=== PATIENT | male | born 1950 | race Caucasian/White ===

== ENCOUNTER 2017-10-11 09:54 | Inpatient (IN) | payer OTHER ==
[~2017-10-11] VITALS: Ht 167.6 cm; Wt 77.5 kg
[2017-10-11] VITALS (17 sets, daily range): BP systolic 98–147; BP diastolic 61–98; Ht 167.6 cm; Wt 77.5 kg
--- NOTE | ~2017-10-11 | EC ---
PATIENT:JANA SAN DATE OF SERVICE: 10/11/17 SEX: M MEDICAL RECORD: [id number] DATE OF : 52 LOCATION:[place] [address] AGE OF PATIENT: 67 ADMISSION DATE: 10/11/17 REFERRING PHYSICIAN: INTERPRETING PHYSICIAN: RAMONITA YOUNG MD ECHOCARDIOGRAM REPORT ECHO CHARGES 4 ECHO COMPLETE CLINICAL DIAGNOSIS: INFERIOR LA ECHOCARDIOGRAPHIC MEASUREMENTS (adult normal given) AC root (d.<3.7cm) 2.8 cm LV Septum d (<1.2 cm> 1.2 cm Valve Excursion 1.7 cm LV Septum (systole) 1.7 cm Left Atria (s.<4.0cm> 2.8 cm LVPW d(<1.2cm) 1.1 cm RV (d.<2.3cm) 2.8 cm LVPW (sytole) 1.5 cm LV diastole(<5.6CM) 5.2 cm MV E-F(>70mm/sec) cm LV systole 3.4 cm LVOT Diameter 1.9 cm MV exc.(>10mm) cm Est.ejection fraction (50-75%) % Pericardial Effusion N DOPPLER: LVIT cm/sec A 101 cm/sec E 55.0 cm/sec LA cm/sec RVSP 26.0 mmHg LVOT 78.0 cm/sec AOP1/2T m/s Asc. Ao 149 cm/sec RVOT 44.0 cm/sec RA cm/sec PA 87.0 cm/sec AV Gradient Peak 8.9 mmHg AV Mean 4.5 mmHg AV Area 1.4 cm MV Gradient Peak 5.7 mmHg MV Mean 1.6 mmHg MV Area cm COMMENTS: Package Dyeing Machine Operator: Aline JOHNSON Ovens Supervisor: 2 Dr. Santos TAPE# PACS DATE OF SERVICE: 10/12/2017 PROCEDURE: Echocardiogram. FINDINGS: 1. Left ventricular chamber size is within normal limits. Left ventricular systolic function is normal. Overall ejection fraction estimated at 50%. 2. Left atrium, right atrium, and right ventricular chamber sizes are within normal limits. 3. Valvular structures have normal structure and motion. ECHOCARDIOGRAM REPORT [id number] JANA SAN 4. Doppler interrogation reveals only mild mitral regurgitation. No other valvular insufficiency or stenosis. 5. No evidence of pericardial effusion or left ventricular thrombus. Pulmonary systolic pressure is normal estimated 12 mmHg. TRANSINT:[id number] Voice Confirmation ID: [id number] DOCUMENT ID: [id number] RAMONITA YOUNG MD at 1324 CC: [id number] DICTATION DATE: 10/12/17 1254 AVIONICS MECHANIC: 10/12/17 1339 DIS IN 10/12/17 [facility] [address] [place] [id number]
--- NOTE | ~2017-10-11 | HEMODYNAMI ---
PATIENT:JANA SAN MEDICAL RECORD: [id number] : 52 [id number] ADMISSION DATE: 10/11/17 Generatedon:10/11/201710:56 Patient name: JANA SAN Patient #: [id number] SSN: DO B: 1950 Date of study: 10/11/2017 Page: Of Hemodynamic Procedure Report Patient Data Patient Demographics Procedure consent was obtained First Name: JANA Gender: Male Last Name: JASWINDER : 1950 Middle Initial: W Age: 67 year(s) Patient #: [id number] Race: Unknown Additional ID: [id number] Contact details [address]: [address] [place] [address] State: [place] City: [place] Zip code: [address] Admission Admission Data Admission Date: 10/11/2017 Admission Time: 9:54 Procedure Procedure Types Cath Procedure Diagnostic Procedure LHC LHC w/Coronaries PCI Procedure AMI/SVG/ARCH 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 PTCA or Stent AMI-BMS/JENNIFER Initial Miscellaneous Procedures Moderate Sedation up to 30 minutes Procedure Description Procedure Date Procedure Date: 10/11/2017 Procedure Start Time: 10:27 Procedure End Time: 10:56 Procedure Staff Name Function Benji Hernandez RT Monitor Shyla Salazar RT Scrub Saritha Medina RN Nurse Chante Lau RN Nurse Sarath Santos MD Performing Physician Procedure Data Cath Procedure Fluoroscopy Diagnostic fluoroscopy Total fluoroscopy Time: 7.2 time: 7.2 min min Diagnostic fluoroscopy Total fluoroscopy dose: 809 dose: 809 mGy mGy Contrast Material Contrast Material Type Amount (ml) Isovue 300 133 Entry Location Entry Primary Successful Side Size Upsize Upsize Entry Closure Succes sful Closure Location (Fr) 1 (Fr) 2 (Fr) Remarks Device Remarks Femoral Right 6 Fr Exoseal artery Short Estimated blood loss: 10 ml Diagnostic catheters Device Type Used For End Catheter Placement MULTIPACK JL 4.0 5Fr Procedure catheter MULTIPACK 3DRC 5Fr Procedure catheter DIAGNOSTIC AR 2 MOD 5 Fr Procedure catheter ([id number]) MULTIPACK Pigtail 5 Fr Procedure catheter Procedure Complications No complications Procedure Medications Medication Administration Route Dosage 0.9% NaCl I.V. 100 ml/hr Oxygen NC 2 l/min Lidocaine 2% added to field 20 Heparin Flush Bag added to field 2 bags (1000units/500ml NS) Versed I.V. 1 mg Fentanyl I.V. 50 mcg Versed I.V. 1 mg Fentanyl I.V. 50 mcg Versed I.V. 1 mg Heparin Bolus I.V. 7000 units Versed I.V. 1 mg Hemodynamics Rest Heart Rate: 73 (bpm) Pressure Samples Time Site Value (mmHg) Purpose Heart Use Rate(bpm) 10:29 AO 100/62(79) Snapshot 73 10:36 LV 118/-9,12 Snapshot 81 10:37 AO 122/61(87) Pullback 82 10:37 LV 138/-6,10 Pullback 82 Gradients Valve Time Site 1 Site 2 Mean SEP/DFP Peak To Heart Use (mmHg) (sec/min) Peak Rate (mmHg) (bpm) Aortic 10:37 LV AO 7 7 16 82 138/-6,10 122/61(87) Calculations Valve P-P Mean Valve Index Valve Source Name Gradient Area Flow (cm2) Aortic 16 7 16 7 Snapshots Pre Cath Intra NCS Post Cath Vital Signs Time Heart Resp SPO2 etCO2 NIBP (mmHg) Rhythm Pain Sedation Rate (ipm) (%) (mmHg) Status Level (bpm) 10:17:00 82 17 99 30.5 142/63(125) NSR 0 (11) 10(A) , No pain 10:21:41 72 14 99 32 119/62(111) NSR 0 (11) 10(A) , No pain 10:26:17 71 18 96 31.2 118/71(93) NSR 0 (11) 10(A) , No pain 10:30:52 77 20 98 34.2 119/74(96) NSR 0 (11) 9(A) , No pain 10:35:28 74 19 98 37.2 119/68(94) NSR 0 (11) 10(A) , No pain 10:40:03 81 21 98 32 117/76(98) NSR 0 (11) 9(A) , No pain 10:44:37 84 22 98 29 118/77(94) NSR 0 (11) 9(A) , No pain 10:49:12 80 24 98 32.8 128/73(102) NSR 0 (11) 10(A) , No pain 10:53:48 82 20 98 30.5 125/79(97) NSR 0 (11) 10(A) , No pain Medications Time Medication Route Dose Verified Delivered Reason Not es Effectiveness by by 10:18:09 0.9% NaCl I.V. 100ml/hr Eron Chante used for Mario Lau RN procedure 10:18:23 Oxygen NC 2 l/min Eron Chante Per physician Mario Lau RN 10:18:36 Lidocaine 2% added 20ml Eron Eron for local to vial Mario Martin MD anesthetic field 10:18:44 Heparin Flush added 2 bags Eron Eron used for Bag to Mario Martin MD procedure (1000units/500ml field NS) 10:23:29 Versed I.V. 1 mg Sarath Chante for sedation Tom Lau RN 10:23:35 Fentanyl I.V. 50 mcg Sarath Chante for sedation Tom Lau RN 10:26:56 Versed I.V. 1 mg Sarath Chante for sedation Tom Lau RN 10:27:02 Fentanyl I.V. 50 mcg Sarath Chante for sedation Tom Lau RN 10:34:00 Versed I.V. 1 mg Sarath Chante for sedation Tom Lau RN 10:40:06 Heparin Bolus I.V. 7,000 Sarath Chante for [place] ified units Tom Lau RN anticoagulation with dr santos 10:46:23 Versed I.V. 1 mg Sarath Chante for sedation Tom Lau RN Procedure Log Time Note 10:00:44 Benji Hernandez RT(R) sent for patient. Start room use. 10:15:51 Time tracking: Regular hours 10:15:54 Plan of Care:Hemodynamics will remain stable., Cardiac rhythm will remain stable., Comfort level will be maintained., Respiratory function will remain adequate., Patient/ family verbilizes understanding of procedure., Procedure tolerated without complication., Recovers from procedure without complications.. 10:15:57 Patient arrives emergently. 10:16:01 Patient received from ED to CCL 1 Alert and oriented. Tansferred to table in Supine position. 10:16:03 Warm blankets applied, and guero hugger turned on for patient comfort. 10:16:03 Correct patient and procedure confirmed by team. 10:16:04 Signed procedure consent form obtained from patient. 10:16:05 ECG and BP/O2 sat monitors applied to patient. 10:16:05 Vital chart was started 10:16:06 Baseline sample Acquired. 10:16:10 Rhythm: sinus rhythm 10:16:12 Full Disclosure recording started 10:16:16 H&P Date Dictated: 10/11/2017 Emergent; H&P N/A. 10:16:18 Pre-procedure instructions explained to patient. 10:16:18 Pre-op teaching completed and patient verbalized understanding. 10:16:29 Family unavailable. 10:16:31 Patient NPO since Midnight. 10:16:34 Is the patient allergic to Iodine/contrast media? No. 10:16:36 Is patient on blood thinner?Yes 10:16:46 ACC The patient was administered the following blood thiners within the last 24 hours: ACCPlavix 10:16:52 Patient diabetic? No. 10:16:55 Previous problem with sedation/anesthesia? No ? 10:16:56 Snore? Yes 10:16:56 Sleep apnea? No 10:16:57 Deviated septum? No 10:16:58 Opens mouth fully? Yes 10:16:59 Sticks out tongue? Yes 10:17:01 Airway obstruction? No ? 10:17:04 Dentures? No ? 10:17:07 Pre procedure: right dorsailis pedis pulse 1+ Palpable, but thready & weak; easily obliterated 10:17:09 Patient pain scale 0/10 ?. 10:17:24 IV patent on arrival in left hand with 0.9% NaCl at O. 10:17:25 Lab results completed and on chart. 10:17:29 Right groin area was prepped with chlora-prep and draped in sterile fashion 10:17:30 Alarms reviewed by R. N. 10:17:31 Sharps counted by scrub and verified by R.N. 10:17:41 --------ALL STOP TIME OUT------ 10:17:41 Final Timeout: patient, procedure, and site verified with staff and physician. All members of the team are in agreement. 10:17:43 Right groin site verified by team. 10:17:46 Physical assessment completed. ASA score P 2 - A patient with mild systemic disease as per Sarath Santos MD. 10:17:49 Sedation plan: IV Moderate Sedation Medication:Versed, Fentanyl 10:18:09 0.9% NaCl 100ml/hr I.V. was administered by Chante Lau RN; used for procedure; 10:18:23 Oxygen 2 l/min NC was administered by Chante Lau RN; Per physician; 10:18:36 Lidocaine 2% 20ml vial added to field was administered by Eron Martin MD; for local anesthetic; 10:18:44 Heparin Flush Bag (1000units/500ml NS) 2 bags added to field was administered by Eron Martin MD; used for procedure; 10:22:22 Use device set Femoral Dx 10:23:29 Versed 1 mg I.V. was administered by Chante Lau RN; for sedation; 10:23:35 Fentanyl 50 mcg I.V. was administered by Chante Lau RN; for sedation; 10:23:47 Tegaderm 4 x 4 (1626W) opened to sterile field. 10:23:48 ACIST Manifold (81477) opened to sterile field. 10:23:49 ACIST Hand Control (48102) opened to sterile field. 10:23:50 ACIST Syringe (10325) opened to sterile field. 10:23:51 Bag Decanter () opened to sterile field. 10:23:52 Medline Cath Pack ([id number]) opened to sterile field. 10:23:57 DIAGNOSTIC WIRE .035 260cm J wire (845728) opened to sterile field. 10:24:03 DIAGNOSTIC Multipack 5Fr catheter set (NP8473) opened to sterile field. 10:24:04 PERCUTANEOUS ENTRY 19GA needle opened to sterile field. 10:24:05 SHEATH 6FR [place] (JOH534) opened to sterile field. 10:24:06 INFLATOR Merit BasixCompak (CZ5092) opened to sterile field. 10:24:06 BMW 300cm Pella 2 J wire (2263320D) opened to sterile field. 10:24:07 TUBING High Pressure Extension Tubing (Tom) (AF5926P) opened to sterile field. 10:24:07 IV Extension Set opened to sterile field. 10:26:56 Versed 1 mg I.V. was administered by Chante Lau RN; for sedation; 10:27:02 Fentanyl 50 mcg I.V. was administered by Chante Lau RN; for sedation; 10:27:41 Procedure started. 10:27:46 Local anesthetic to right femoral artery with Lidocaine 2% by Sarath Santos MD.INITIAL ACCESS ONLY 10:28:29 A 6 Fr Short sheath was inserted into the Right Femoral artery 10:29:06 A MULTIPACK JL 4.0 5Fr catheter was advanced over the wire and used for Procedure. 10:29:34 LCA angiography performed. 10:30:01 Baseline sample Acquired. 10:31:24 Catheter exchanged over wire. 10:31:36 A MULTIPACK 3DRC 5Fr catheter was advanced over the wire and used for Procedure. 10:33:39 Catheter removed. unable to cannulate vessel. 10:33:52 A DIAGNOSTIC AR 2 MOD 5 Fr catheter (594442U) was advanced over the wire and used for Procedure. 10:34:00 Versed 1 mg I.V. was administered by Chante Lau RN; for sedation; 10:35:01 RCA angiography performed. 10:35:32 Catheter exchanged over wire. 10:35:38 A MULTIPACK Pigtail 5 Fr catheter was advanced over the wire and used for Procedure. 10:35:49 GUIDE 6FR AR 2.0 catheter ([id number]) opened to sterile field. 10:36:57 LV angiography performed. 10:36:58 LV gram done using REN 10:37:03 EF : 50 % 10:37:16 LV hemodynamics recorded. 10:37:19 Injector settings: Ml/sec: 10, Volume: 20, 10:37:21 Catheter exchanged over wire. 10:37:30 6 Fr AR 2 guide catheter was inserted over the wire 10:38:36 Study PCI Site: [place] mRCA has 95% stenosis. 10:39:15 ACC Pre-intervention MONSE Flow is 3. 10:40:06 Heparin Bolus 7,000 units I.V. was administered by Chante Lau RN; for anticoagulation; verified with dr santos 10:41:11 BMW wire advanced. 10:42:31 Wire advanced across lesion. 10:42:51 Inflation number: 1 A MAVERICK 2.5 X 20 balloon ( [id number]) was prepped and advanced across the Mid RCA, then inflated to 12 JOSE for 0:10 (min:sec). 10:44:54 Balloon removed over the wire. 10:46:23 Versed 1 mg I.V. was administered by Chante Lau RN; for sedation; 10:48:54 Inflation Number: 2 A INTEGRITY OTW 3.0 X 26 stent ([id number]) was prepped and advanced across the Mid RCA. The stent was deployed at 14 JOSE for 0:10 (min:sec). 10:51:02 Stent catheter was removed intact over wire. 10:51:04 Wire removed. 10:51:04 Guide catheter removed. 10:51:14 EXOSEAL 6Fr (EX600) opened to sterile field. 10:51:28 Sheath removed intact; hemostasis achieved with Exoseal to the Right Femoral artery. 10:51:35 Procedure ended.(Physican Out) 10:53:14 Fluoroscopy time 07.20 minutes. 10:53:18 Fluoroscopy dose: 809 mGy 10:53:18 Flurop Dose total: 809 10:53:25 Contrast amount:Isovue 300 133ml. 10:53:27 Sharps counted by scrub and verified by R.N. 10:53:29 Insertion/operative site no bleeding no hematoma. 10:53:33 Post-op/insertion site Right Femoral artery dressed using a 4 x 4 and Tegaderm. 10:53:38 Post Procedure Pulses reassessed and unchanged 10:53:42 Post-procedure physical assessment completed. ASA score P 2 - A patient with mild systemic disease as per Sarath Santos MD. 10:53:45 Post procedure rhythm: unchanged. 10:53:49 Estimated blood loss: 10 ml 10:53:51 Post procedure instruction explained to patient.Patient verbalizes understanding. 10:53:52 Patient needs reinforcement of post procedure teaching. 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 10:54:06 Procedure Complication : No complications 10:56:22 Vital chart was stopped 10:56:22 See physician's report for complete and final results. 10:56:27 Report given to CVICU. 10:56:31 Patient transfered to CVICU with Bed. 10:56:33 Procedure ended. 10:56:33 Full Disclosure recording stopped 10:56:40 End room use (Document Last) Intervention Summary Intervention Notes Time ActionType Lesion and Equipment Action# Pressure Duration Attributes Used 10:42:51 Inflate Mid RCA MAVERICK 1 12 00:10 balloon 2.5 X 20 balloon ( [id number]) 10:48:54 Place stent Mid RCA INTEGRITY 2 14 00:10 OTW 3.0 X 26 stent ([id number]) Device Usage Item Name Manufacture Quantity Catalog Number Hospital Part Current Min imal Lot# / Charge Number Stock Stock Serial# Code Tegaderm 4 x 3M 1 1626W 361102 397744 037120 5 4 (1626W) ACIST Acist 1 03560 901857 510219 923485 5 Manifold Medical (08053) Systems Inc ACIST Hand Acist 1 34612 514608 326340 431750 5 Control Medical (98578) Systems Inc ACIST Acist 1 05004 917057 779889 965136 20 Syringe Medical (25365) Systems Inc Bag Decanter Microtek 1 2002S 868976 72246 475189 5 (2001S) Medical Inc. Medline Cath Cardinal 1 [id number] 766457 85070 191271 5 Pack Health ([id number]) DIAGNOSTIC [facility] [place] 1 630953 239191 894159 248155 30 WIRE .035 260cm J wire (388512) DIAGNOSTIC Cardinal 1 CR7007 138977 34102 228803 30 Multipack Health 5Fr catheter set (DK3799) PERCUTANEOUS Cook Medical 1 G96900 425600 515871 5 ENTRY 19GA needle SHEATH 6FR Terumo 1 PAI321 638639 565687 588846 40 [place] (OJB760) INFLATOR [facility] 1 WW3966 837702 950909 216138 15 [facility] Medical BasixCompak (KQ4539) BMW 300cm Garcia 1 [id number] 219853 810057 015209 5 Pella 2 Vascular J wire (7316121U) TUBING High Merit 1 [id number] 108651 09363 107327 10 Pressure Medical Extension Tubing (Santos) (JM3949S) IV Extension Hospira 1 46577-63 791113 27801 450968 5 Set MULTIPACK JL Cardinal 1 842130 5 4.0 5Fr Health catheter MULTIPACK Cardinal 1 626455 5 3DRC 5Fr Health catheter DIAGNOSTIC Cardinal 1 [id number] 128381 841019 444265 20 AR 2 MOD 5 Health Fr catheter (646138N) MULTIPACK Cardinal 1 207518 5 Pigtail 5 Fr Health catheter GUIDE 6FR AR Medtronic 1 [id number] 048654 70781 765580 1 2.0 catheter (FR3BZ03) MAVERICK 2.5 [place] 1 [id number] 318968 895117 919011 1 [id number] X 20 balloon Scientific ( [id number]) INTEGRITY Medtronic 1 [id number] 309010 548049 6 [id number] OTW 3.0 X 26 stent ([id number]) EXOSEAL 6Fr Cardinal 1 EX600 999527 972070 607051 10 (EX600) Health Signature Audit [place] Stage Time Signature Unsigned Intra-Procedure 10/11/2017 Benji Hernandez 10:56:52 AM RT(R) Signatures Monitor : Benji Hernandez RT Signature : Date : Time : [facility] [address] [place] [address]
[2017-10-11] MEDS ORDERED: HYDROCHLOROTHIA25 MG PO (13:53)
[2017-10-12] VITALS (10 sets, daily range): BP systolic 107–148; BP diastolic 54–77
[2017-10-12] MEDS ORDERED: TOPROL XL25 MG PO (11:07)
[2017-10-12] MEDS ORDERED: PLAVIX75 MG PO (11:08)
== END 2017-10-12 16:26 | disposition home or self-care (01) | DRG 249 ==
LOC: D.CATH 09:54 → D.CVICU 10:56 → D.CATH 15:56 → D.CVICU 15:56
PROVIDERS: Internal Medicine Cardiovascular Disease
PROC: B2111ZZ Fluoroscopy of Multiple Coronary Arteries using Low Osmolar Contrast (ICD-10-PCS; 2017-10-11)
PROC: B2151ZZ Fluoroscopy of Left Heart using Low Osmolar Contrast (ICD-10-PCS; 2017-10-11)
PROC: 02703DZ Dilation of Coronary Artery, One Artery with Intraluminal Device, Percutaneous Approach (ICD-10-PCS; principal; 2017-10-11 10:00)
PROC: 4A023N7 Measurement of Cardiac Sampling and Pressure, Left Heart, Percutaneous Approach (ICD-10-PCS; 2017-10-11 10:00)
DX: I21.19 ST elevation (STEMI) myocardial infarction involving other coronary artery of inferior wall (principal); I10 Essential (primary) hypertension; I25.10 Atherosclerotic heart disease of native coronary artery without angina pectoris